=== PATIENT | female | born 1955 | race African-American/Black ===

== ENCOUNTER 2018-11-25 18:00 | Inpatient (IN) ==
[2018-11-25 19:08] LABS: Basophils % 0.2 % (0.0-0.8); Eosinophils # 0.3 10*3/uL (0.0-0.87); Eosinophils % 1.9 % (0.00-10.9); Hematocrit 44.7 VOL% (35.7-47.0); Hemoglobin 13.6 GM/DL (12.0-16.0); Immature Granulocytes % 2.2 %; Immature Granulocytes Absolute 0.35 #; Lymphocytes # 0.9 10*3/uL (1.4-4.0); Lymphocytes % 5.4 % (21.3-54.2); Mean Corpuscular HGB Conc 30.4 GM/DL (32-36); Mean Corpuscular Hemoglobin 28 PG (27-34); Mean Corpuscular Volume 91.4 FL (87-102); Mean Platelet Volume 10.2 FL (9.6-12.0); Monocytes % 5.9 % (1.7-12.7); NRBC # 0.03 10*3/uL; Neutrophils # 13.6 10*3/uL (1.4-7.4); Neutrophils % 84.4 % (38.7-73.9); Platelet Count 317 T/CUMM (130-400); Red Blood Count 4.89 MC/CUMM (3.8-5.5); Red Cell Distribution Width 14.5 % (9.3-17.3); White Blood Count 16.1 T/CUMM (4-12)
[2018-11-25 19:11] LABS: VBG Base Excess 10.8 MEQ/L (0-4); VBG HCO3 33.1 MEQ/L (24-28); VBG Oxygen Saturation 43.4 %; VBG PCO2 62.1 MMHG (41-51); VBG PH 7.403; VBG PO2 27.1 MMHG (17-40)
[2018-11-25 19:28] LABS: Albumin 2.7 G/DL (3.4-5.0); Bilirubin,Total 0.6 MG/DL (0.2-1.0); Calcium 8.2 MG/DL (8.5-10.1); Potassium 3.6 MMOL/L (3.5-5.1); Total Protein 6.2 G/DL (6.4-8.3)
[2018-11-25] MEDS ORDERED: FUROSEMIDE 40 MG/4 ML VIAL IV STA (19:41)
[2018-11-25] MEDS ORDERED: DEXTROSE 50% 25 GM/50 ML SYRINGE IV PRN (21:19)
[2018-11-25] MEDS ORDERED: GLUCAGON 1 MG VIAL IM PRN ×2 (21:19)
[2018-11-25] MEDS ORDERED: ACETAMINOPHEN 325 MG TABLET PO PRN (21:19)
[2018-11-25] MEDS ORDERED: DEXTROSE 50% 25 GM/50 ML VIAL IV PRN (21:19)
[2018-11-25] MEDS ORDERED: MAGNESIUM SULF RIDER 4 GM in PREMIX 1 EACH IV PRN (21:19)
[2018-11-25] MEDS ORDERED: ONDANSETRON 4 MG/2 ML VIAL IV PRN (21:19)
[2018-11-25] MEDS ORDERED: MAGNESIUM SULF RIDER 2 GM in PREMIX 1 EACH IV PRN (21:19)
[2018-11-25] MEDS ORDERED: CETIRIZINE 10 MG TABLET PO PRN (21:27)
[2018-11-26] MEDS: APIXABAN 5 MG TABLET PO SCH ×3 (00:28→21:58)
[2018-11-26] MEDS: INSULIN REGULAR 100 UNIT/ML SUBCUT SCH ×5 (00:37→21:58)
[2018-11-26 05:59] LABS: Basophils # 0.1 10*3/uL (0.0-0.2); Basophils % 0.3 % (0.0-0.8); Eosinophils # 0.4 10*3/uL (0.0-0.87); Eosinophils % 2.5 % (0.00-10.9); Hematocrit 47.3 VOL% (35.7-47.0); Hemoglobin 14.2 GM/DL (12.0-16.0); Immature Granulocytes % 2.7 %; Immature Granulocytes Absolute 0.42 #; Lymphocytes % 6.5 % (21.3-54.2); Mean Corpuscular Hemoglobin 28 PG (27-34); Mean Corpuscular Volume 91.8 FL (87-102); Mean Platelet Volume 10.9 FL (9.6-12.0); Monocytes # 1.1 10*3/uL (0.11-0.8); Monocytes % 6.9 % (1.7-12.7); NRBC # 0.02 10*3/uL; Neutrophils # 12.5 10*3/uL (1.4-7.4); Neutrophils % 81.1 % (38.7-73.9); Platelet Count 312 T/CUMM (130-400); Red Blood Count 5.15 MC/CUMM (3.8-5.5); Red Cell Distribution Width 14.6 % (9.3-17.3); White Blood Count 15.4 T/CUMM (4-12)
[2018-11-26 06:34] LABS: Albumin 2.1 G/DL (3.4-5.0); Bilirubin,Total 0.6 MG/DL (0.2-1.0); Calcium 7.9 MG/DL (8.5-10.1); Osmolality,Calculated 282.5 MOS/KG (273-304); Potassium 3.4 MMOL/L (3.5-5.1)
[2018-11-26] MEDS: LEVOTHYROXINE 50 MCG TABLET PO SCH (06:38)
[2018-11-26] MEDS ORDERED: Fluticasone/Vilanterol [Breo Ellipta 100-25 Mcg Inh] INH SCH (09:00)
[2018-11-26] MEDS ORDERED: NON-FORMULARY MEDICATION (Fexofenadine/Pseudoeph 60-120 1 TABLET) PO SCH (09:00)
[2018-11-26] MEDS: METOPROLOL TARTRATE 25 MG TABLET PO SCH (09:02)
[2018-11-26] MEDS: FUROSEMIDE 40 MG/4 ML VIAL IV SCH ×2 (09:02→17:14)
[2018-11-26] MEDS: PANTOPRAZOLE 40 MG TABLET PO SCH (09:03)
[2018-11-26] MEDS: FERROUS SULFATE 325 MG TABLET PO SCH ×2 (09:03→21:58)
[2018-11-26] MEDS: ASPIRIN CHEW 81 MG TABLET PO SCH (09:03)
[2018-11-26] MEDS: DILTIAZEM CD 120 MG CAPSULE PO SCH ×2 (09:03→21:58)
[2018-11-26] MEDS: POLYMYXIN/TRIMETHOPRIM OPH SOL 10 ML BOTTLE BOTH EYES SCH ×4 (09:03→22:00)
[2018-11-26] MEDS: ISOSORBIDE MONONITRATE 60 MG TABLET PO SCH (09:03)
[2018-11-26] MEDS: FLUTICASONE 50 MCG NASAL SPRAY 16 GM BOTTLE BOTH NARES SCH (09:03)
[2018-11-26] MEDS: DRONEDARONE 400 MG TABLET PO SCH ×2 (09:03→17:14)
[2018-11-26 13:25] LABS: Apearance,Urine CLOUDY (Clear); Bilirubin,Urine Negative (Negative); Blood, Urine Large mg/dL (Negative); Glucose,Urine (UA) Negative (Negative); Hyaline Casts,Urine 11 /LPF (0-3); Ketones,Urine Negative (Negative); Mucus,Urine Few /LPF (Occasional); Nitrite,Urine Negative (Negative); Protein,Urine Negative; RBC,Urine 249 /HPF (0-4); Urine Color Dark yellow (Yellow); Urine Specific Gravity 1.015 (1.001-1.035); WBC,Urine 361 /HPF (0-6)
[2018-11-26] MEDS: cefTRIAXone 1,000 MG in SYRINGE 1 EACH IV SCH (16:50)
[2018-11-26] MEDS: ROSUVASTATIN 20 MG TABLET PO SCH (21:58)
[2018-11-27] MEDS: LEVOTHYROXINE 50 MCG TABLET PO SCH (06:01)
[2018-11-27] MEDS: INSULIN REGULAR 100 UNIT/ML SUBCUT SCH ×4 (08:32→21:13)
[2018-11-27] MEDS: DRONEDARONE 400 MG TABLET PO SCH (08:33)
[2018-11-27] MEDS: FUROSEMIDE 40 MG/4 ML VIAL IV SCH ×2 (08:33→17:01)
[2018-11-27] MEDS: DILTIAZEM CD 120 MG CAPSULE PO SCH ×2 (08:33→20:32)
[2018-11-27] MEDS: ISOSORBIDE MONONITRATE 60 MG TABLET PO SCH (08:33)
[2018-11-27] MEDS: FERROUS SULFATE 325 MG TABLET PO SCH ×2 (08:33→20:32)
[2018-11-27] MEDS: ASPIRIN CHEW 81 MG TABLET PO SCH (08:33)
[2018-11-27] MEDS: APIXABAN 5 MG TABLET PO SCH ×2 (08:34→20:32)
[2018-11-27] MEDS: METOPROLOL TARTRATE 25 MG TABLET PO SCH (08:34)
[2018-11-27] MEDS: PANTOPRAZOLE 40 MG TABLET PO SCH (08:34)
[2018-11-27] MEDS: POLYMYXIN/TRIMETHOPRIM OPH SOL 10 ML BOTTLE BOTH EYES SCH ×4 (08:34→20:33)
[2018-11-27] MEDS: FLUTICASONE 50 MCG NASAL SPRAY 16 GM BOTTLE BOTH NARES SCH (08:35)
[2018-11-27 09:02] LABS: Basophils % 0.2 % (0.0-0.8); Eosinophils # 0.4 10*3/uL (0.0-0.87); Eosinophils % 2.9 % (0.00-10.9); Hematocrit 39.9 VOL% (35.7-47.0); Hemoglobin 12.1 GM/DL (12.0-16.0); Immature Granulocytes % 2.9 %; Immature Granulocytes Absolute 0.37 #; Lymphocytes % 7.7 % (21.3-54.2); Mean Corpuscular HGB Conc 30.3 GM/DL (32-36); Mean Corpuscular Hemoglobin 28 PG (27-34); Mean Corpuscular Volume 92.1 FL (87-102); Mean Platelet Volume 10.2 FL (9.6-12.0); Monocytes % 7.5 % (1.7-12.7); NRBC # 0.02 10*3/uL; Neutrophils # 10.2 10*3/uL (1.4-7.4); Neutrophils % 78.8 % (38.7-73.9); Platelet Count 283 T/CUMM (130-400); Red Blood Count 4.33 MC/CUMM (3.8-5.5); Red Cell Distribution Width 14.8 % (9.3-17.3); White Blood Count 12.9 T/CUMM (4-12)
[2018-11-27 09:16] LABS: Calcium 7.9 MG/DL (8.5-10.1); Potassium 3.2 MMOL/L (3.5-5.1)
[2018-11-27] MEDS ORDERED: SKIN HEALING OINT (AQUAPHOR) 50 GM TUBE TOP PRN (11:00)
[2018-11-27] MEDS: POTASSIUM CHLORIDE 20 MEQ TABLET PO SCH ×2 (11:31→15:08)
[2018-11-27 12:15] LABS: Free T4 (Free Thyroxine) 1.48 NG/DL (0.76-1.46); Thyroid Stimulating Hormone 5.76 uIU/ml (0.358-3.74)
[2018-11-27] MEDS: cefTRIAXone 1,000 MG in SYRINGE 1 EACH IV SCH (15:08)
[2018-11-27] MEDS: METOPROLOL TARTRATE 100 MG TABLET PO SCH (20:32)
[2018-11-27] MEDS: ROSUVASTATIN 20 MG TABLET PO SCH (20:32)
[2018-11-27] MEDS ORDERED: METOPROLOL TARTRATE 25 MG TABLET PO SCH (21:00)
[2018-11-28] MEDS: LEVOTHYROXINE 50 MCG TABLET PO SCH (05:58)
[2018-11-28 06:12] LABS: Basophils % 0.4 % (0.0-0.8); Eosinophils # 0.3 10*3/uL (0.0-0.87); Eosinophils % 3.2 % (0.00-10.9); Hematocrit 39.9 VOL% (35.7-47.0); Immature Granulocytes % 2.3 %; Immature Granulocytes Absolute 0.23 #; Lymphocytes # 0.6 10*3/uL (1.4-4.0); Lymphocytes % 5.9 % (21.3-54.2); Mean Corpuscular HGB Conc 30.1 GM/DL (32-36); Mean Corpuscular Hemoglobin 28 PG (27-34); Mean Corpuscular Volume 92.1 FL (87-102); Mean Platelet Volume 10.7 FL (9.6-12.0); Neutrophils # 7.9 10*3/uL (1.4-7.4); Neutrophils % 78.2 % (38.7-73.9); Platelet Count 305 T/CUMM (130-400); Red Blood Count 4.33 MC/CUMM (3.8-5.5); Red Cell Distribution Width 14.7 % (9.3-17.3); White Blood Count 10.1 T/CUMM (4-12)
[2018-11-28 06:32] LABS: Calcium 8.3 MG/DL (8.5-10.1); Osmolality,Calculated 284.5 MOS/KG (273-304); Potassium 3.7 MMOL/L (3.5-5.1)
[2018-11-28] MEDS: FUROSEMIDE 40 MG/4 ML VIAL IV SCH ×2 (09:04→15:09)
[2018-11-28] MEDS: FLUTICASONE 50 MCG NASAL SPRAY 16 GM BOTTLE BOTH NARES SCH (09:04)
[2018-11-28] MEDS: INSULIN REGULAR 100 UNIT/ML SUBCUT SCH ×4 (09:04→20:41)
[2018-11-28] MEDS: ASPIRIN CHEW 81 MG TABLET PO SCH (09:05)
[2018-11-28] MEDS: APIXABAN 5 MG TABLET PO SCH ×2 (09:05→20:35)
[2018-11-28] MEDS: DILTIAZEM CD 120 MG CAPSULE PO SCH ×2 (09:05→20:35)
[2018-11-28] MEDS: METOPROLOL TARTRATE 100 MG TABLET PO SCH ×2 (09:05→20:35)
[2018-11-28] MEDS: PANTOPRAZOLE 40 MG TABLET PO SCH (09:05)
[2018-11-28] MEDS: ISOSORBIDE MONONITRATE 60 MG TABLET PO SCH (09:05)
[2018-11-28] MEDS: FERROUS SULFATE 325 MG TABLET PO SCH ×2 (09:06→20:35)
[2018-11-28] MEDS: POLYMYXIN/TRIMETHOPRIM OPH SOL 10 ML BOTTLE BOTH EYES SCH ×3 (09:06→16:30)
[2018-11-28] MEDS: metFORMIN 500 MG TABLET PO SCH ×2 (09:13→16:28)
[2018-11-28] MEDS: INSULIN GLARGINE 100 UNIT/ML SUBCUT SCH (09:13)
[2018-11-28] MEDS: CLOBETASOL 0.05% CREAM 15 GM TUBE TOP SCH (09:54)
[2018-11-28] MEDS: cefTRIAXone 1,000 MG in SYRINGE 1 EACH IV SCH (15:09)
[2018-11-28] MEDS: ROSUVASTATIN 20 MG TABLET PO SCH (20:35)
[2018-11-29] MEDS: POLYMYXIN/TRIMETHOPRIM OPH SOL 10 ML BOTTLE BOTH EYES SCH ×5 (01:17→20:44)
[2018-11-29] MEDS: CLOBETASOL 0.05% CREAM 15 GM TUBE TOP SCH ×3 (01:17→20:45)
[2018-11-29 05:42] LABS: Basophils % 0.2 % (0.0-0.8); Eosinophils % 0.1 % (0.00-10.9); Hematocrit 34.5 VOL% (35.7-47.0); Hemoglobin 10.5 GM/DL (12.0-16.0); Immature Granulocytes % 1.1 %; Lymphocytes # 0.6 10*3/uL (1.4-4.0); Mean Corpuscular HGB Conc 30.4 GM/DL (32-36); Mean Corpuscular Hemoglobin 28 PG (27-34); Monocytes # 0.4 10*3/uL (0.11-0.8); Monocytes % 3.8 % (1.7-12.7); Neutrophils # 8.2 10*3/uL (1.4-7.4); Neutrophils % 88.8 % (38.7-73.9); Platelet Count 263 T/CUMM (130-400); Red Blood Count 3.79 MC/CUMM (3.8-5.5); Red Cell Distribution Width 14.5 % (9.3-17.3); White Blood Count 9.2 T/CUMM (4-12)
[2018-11-29 06:03] LABS: Calcium 8.1 MG/DL (8.5-10.1); Osmolality,Calculated 284.7 MOS/KG (273-304); Potassium 3.8 MMOL/L (3.5-5.1)
[2018-11-29] MEDS: LEVOTHYROXINE 50 MCG TABLET PO SCH (06:07)
[2018-11-29] MEDS: INSULIN REGULAR 100 UNIT/ML SUBCUT SCH ×4 (09:35→20:45)
[2018-11-29] MEDS: INSULIN GLARGINE 100 UNIT/ML SUBCUT SCH (09:36)
[2018-11-29] MEDS: metFORMIN 500 MG TABLET PO SCH ×2 (09:36→16:48)
[2018-11-29] MEDS: FERROUS SULFATE 325 MG TABLET PO SCH ×2 (09:36→20:43)
[2018-11-29] MEDS: ISOSORBIDE MONONITRATE 60 MG TABLET PO SCH (09:36)
[2018-11-29] MEDS: FUROSEMIDE 40 MG/4 ML VIAL IV SCH ×2 (09:36→16:46)
[2018-11-29] MEDS: METOPROLOL TARTRATE 100 MG TABLET PO SCH ×2 (09:37→20:43)
[2018-11-29] MEDS: DILTIAZEM CD 120 MG CAPSULE PO SCH ×2 (09:37→20:44)
[2018-11-29] MEDS: PANTOPRAZOLE 40 MG TABLET PO SCH (09:37)
[2018-11-29] MEDS: ASPIRIN CHEW 81 MG TABLET PO SCH (09:37)
[2018-11-29] MEDS: APIXABAN 5 MG TABLET PO SCH ×2 (09:37→20:43)
[2018-11-29] MEDS: FLUTICASONE 50 MCG NASAL SPRAY 16 GM BOTTLE BOTH NARES SCH (14:10)
[2018-11-29] MEDS: cefTRIAXone 1,000 MG in SYRINGE 1 EACH IV SCH (16:47)
[2018-11-29] MEDS: ROSUVASTATIN 20 MG TABLET PO SCH (20:43)
[2018-11-30 06:45] LABS: Basophils % 0.2 % (0.0-0.8); Eosinophils % 0.1 % (0.00-10.9); Hematocrit 32.9 VOL% (35.7-47.0); Hemoglobin 10.1 GM/DL (12.0-16.0); Immature Granulocytes Absolute 0.11 #; Lymphocytes # 0.6 10*3/uL (1.4-4.0); Lymphocytes % 5.4 % (21.3-54.2); Mean Corpuscular HGB Conc 30.7 GM/DL (32-36); Mean Corpuscular Hemoglobin 28 PG (27-34); Mean Corpuscular Volume 91.6 FL (87-102); Mean Platelet Volume 10.5 FL (9.6-12.0); Monocytes # 0.5 10*3/uL (0.11-0.8); Monocytes % 4.7 % (1.7-12.7); Neutrophils # 10.1 10*3/uL (1.4-7.4); Neutrophils % 88.6 % (38.7-73.9); Platelet Count 260 T/CUMM (130-400); Red Blood Count 3.59 MC/CUMM (3.8-5.5); Red Cell Distribution Width 14.2 % (9.3-17.3); White Blood Count 11.3 T/CUMM (4-12)
[2018-11-30 06:55] LABS: Calcium 8.4 MG/DL (8.5-10.1); Osmolality,Calculated 291.7 MOS/KG (273-304); Potassium 3.9 MMOL/L (3.5-5.1)
[2018-11-30] MEDS: LEVOTHYROXINE 50 MCG TABLET PO SCH (07:05)
[2018-11-30] MEDS: INSULIN REGULAR 100 UNIT/ML SUBCUT SCH ×4 (08:57→21:11)
[2018-11-30] MEDS: ASPIRIN CHEW 81 MG TABLET PO SCH (08:58)
[2018-11-30] MEDS: metFORMIN 500 MG TABLET PO SCH ×2 (08:58→18:22)
[2018-11-30] MEDS: PANTOPRAZOLE 40 MG TABLET PO SCH (08:58)
[2018-11-30] MEDS: APIXABAN 5 MG TABLET PO SCH ×2 (08:58→21:11)
[2018-11-30] MEDS: DILTIAZEM CD 120 MG CAPSULE PO SCH ×2 (08:58→21:09)
[2018-11-30] MEDS: INSULIN GLARGINE 100 UNIT/ML SUBCUT SCH (08:58)
[2018-11-30] MEDS: ISOSORBIDE MONONITRATE 60 MG TABLET PO SCH (08:59)
[2018-11-30] MEDS: POLYMYXIN/TRIMETHOPRIM OPH SOL 10 ML BOTTLE BOTH EYES SCH ×4 (08:59→21:11)
[2018-11-30] MEDS: METOPROLOL TARTRATE 100 MG TABLET PO SCH ×2 (08:59→21:10)
[2018-11-30] MEDS: FERROUS SULFATE 325 MG TABLET PO SCH ×2 (08:59→21:11)
[2018-11-30] MEDS: FUROSEMIDE 40 MG/4 ML VIAL IV SCH (10:16)
[2018-11-30] MEDS: CLOBETASOL 0.05% CREAM 15 GM TUBE TOP SCH ×2 (10:17→21:15)
[2018-11-30] MEDS: FLUTICASONE 50 MCG NASAL SPRAY 16 GM BOTTLE BOTH NARES SCH (10:17)
[2018-11-30] MEDS ORDERED: FUROSEMIDE 40 MG TABLET PO PRN (11:47)
[2018-11-30] MEDS: cefTRIAXone 1,000 MG in SYRINGE 1 EACH IV SCH (15:18)
[2018-11-30] MEDS: ROSUVASTATIN 20 MG TABLET PO SCH (21:10)
[2018-12-01 06:39] LABS: Calcium 8.6 MG/DL (8.5-10.1); Osmolality,Calculated 293.4 MOS/KG (273-304); Potassium 4.2 MMOL/L (3.5-5.1)
[2018-12-01] MEDS: LEVOTHYROXINE 50 MCG TABLET PO SCH (07:30)
[2018-12-01] MEDS: FERROUS SULFATE 325 MG TABLET PO SCH ×2 (08:48→21:45)
[2018-12-01] MEDS: ASPIRIN CHEW 81 MG TABLET PO SCH (08:48)
[2018-12-01] MEDS: APIXABAN 5 MG TABLET PO SCH ×2 (08:48→21:46)
[2018-12-01] MEDS: ISOSORBIDE MONONITRATE 60 MG TABLET PO SCH (08:48)
[2018-12-01] MEDS: DILTIAZEM CD 120 MG CAPSULE PO SCH ×2 (08:48→21:46)
[2018-12-01] MEDS: PANTOPRAZOLE 40 MG TABLET PO SCH (08:48)
[2018-12-01] MEDS: METOPROLOL TARTRATE 100 MG TABLET PO SCH ×2 (08:48→21:46)
[2018-12-01] MEDS: metFORMIN 500 MG TABLET PO SCH (08:48)
[2018-12-01] MEDS: FLUTICASONE 50 MCG NASAL SPRAY 16 GM BOTTLE BOTH NARES SCH (08:49)
[2018-12-01] MEDS: INSULIN GLARGINE 100 UNIT/ML SUBCUT SCH (08:50)
[2018-12-01] MEDS: CLOBETASOL 0.05% CREAM 15 GM TUBE TOP SCH ×2 (08:50→21:46)
[2018-12-01] MEDS: POLYMYXIN/TRIMETHOPRIM OPH SOL 10 ML BOTTLE BOTH EYES SCH ×4 (08:50→21:47)
[2018-12-01] MEDS: INSULIN REGULAR 100 UNIT/ML SUBCUT SCH ×4 (08:50→21:46)
[2018-12-01] MEDS: glyBURIDE 2.5 MG TABLET PO SCH (12:52)
[2018-12-01] MEDS: FUROSEMIDE 40 MG TABLET PO SCH (16:53)
[2018-12-01] MEDS: ROSUVASTATIN 20 MG TABLET PO SCH (21:45)
[2018-12-02] MEDS: LEVOTHYROXINE 50 MCG TABLET PO SCH (06:05)
[2018-12-02] MEDS: CLOBETASOL 0.05% CREAM 15 GM TUBE TOP SCH (08:30)
[2018-12-02] MEDS: INSULIN GLARGINE 100 UNIT/ML SUBCUT SCH (08:30)
[2018-12-02] MEDS: INSULIN REGULAR 100 UNIT/ML SUBCUT SCH ×3 (08:30→16:20)
[2018-12-02] MEDS: FLUTICASONE 50 MCG NASAL SPRAY 16 GM BOTTLE BOTH NARES SCH (08:30)
[2018-12-02] MEDS: glyBURIDE 2.5 MG TABLET PO SCH (08:31)
[2018-12-02] MEDS: APIXABAN 5 MG TABLET PO SCH (08:31)
[2018-12-02] MEDS: ISOSORBIDE MONONITRATE 60 MG TABLET PO SCH (08:31)
[2018-12-02] MEDS: POLYMYXIN/TRIMETHOPRIM OPH SOL 10 ML BOTTLE BOTH EYES SCH ×3 (08:31→16:56)
[2018-12-02] MEDS: PANTOPRAZOLE 40 MG TABLET PO SCH (08:31)
[2018-12-02] MEDS: ASPIRIN CHEW 81 MG TABLET PO SCH (08:31)
[2018-12-02] MEDS: METOPROLOL TARTRATE 100 MG TABLET PO SCH (08:31)
[2018-12-02] MEDS: FERROUS SULFATE 325 MG TABLET PO SCH (08:31)
[2018-12-02] MEDS: FUROSEMIDE 40 MG TABLET PO SCH ×2 (08:31→16:20)
[2018-12-02] MEDS: DILTIAZEM CD 120 MG CAPSULE PO SCH (08:31)
[2018-12-02 14:47] LABS: Calcium 8.4 MG/DL (8.5-10.1); Osmolality,Calculated 290.5 MOS/KG (273-304); Potassium 3.8 MMOL/L (3.5-5.1)
[2018-12-02 16:55] VITALS: BP 163/92
== END 2018-12-02 16:58 | DRG 292 ==
LOC: N.ED 18:00 → SUATTDRO 21:19 → N.EDINP 21:19 → N.2E 21:58
PROVIDERS: ADMIT Internal Medicine; ATTEND Internal Medicine

== ENCOUNTER 2019-04-22 10:28 | Observation (INO) ==
[2019-04-22] MEDS ORDERED: ALBUTEROL 2.5 MG/3 ML NEB RESP TX SCH (11:00)
[2019-04-22 11:35] LABS: Basophils % 0.3 % (0.0-0.8); Eosinophils # 0.2 10*3/uL (0.0-0.87); Eosinophils % 1.3 % (0.00-10.9); Hematocrit 35.2 VOL% (35.7-47.0); Hemoglobin 10.5 GM/DL (12.0-16.0); Immature Granulocytes % 0.5 %; Immature Granulocytes Absolute 0.06 #; Lymphocytes # 0.8 10*3/uL (1.4-4.0); Lymphocytes % 7.2 % (21.3-54.2); Mean Corpuscular HGB Conc 29.8 GM/DL (32-36); Mean Corpuscular Volume 96.7 FL (87-102); Mean Platelet Volume 9.8 FL (9.6-12.0); Monocytes % 9.7 % (1.7-12.7); Platelet Count 269 T/CUMM (130-400); Red Blood Count 3.64 MC/CUMM (3.8-5.5); Red Cell Distribution Width 14.3 % (9.3-17.3); White Blood Count 11.3 T/CUMM (4-12)
[2019-04-22 11:44] LABS: INR 1.1; PT Patient Result 11.6 SECS; Partial Thromboplastin Time 24.6 SECS (0-40)
[2019-04-22 11:58] LABS: Albumin 3.2 G/DL (3.4-5.0); Bilirubin,Total 0.6 MG/DL (0.2-1.0); Calcium 8.9 MG/DL (8.5-10.1); Osmolality,Calculated 289.6 MOS/KG (273-304); Total Protein 6.1 G/DL (6.4-8.3)
[2019-04-22] MEDS ORDERED: DILTIAZEM 50 MG/10 ML VIAL IV STA (13:25)
[2019-04-22] MEDS ORDERED: DILTIAZEM INJ 100 MG in SODIUM CHLORIDE 0.9% 100 ML IV SCH (13:30)
[2019-04-22] MEDS ORDERED: MORPHINE 4 MG/1 ML VIAL IV PRN (13:31)
[2019-04-22] MEDS ORDERED: PROMETHAZINE 25 MG/1 ML VIAL IM PRN (13:31)
[2019-04-22] MEDS ORDERED: ACETAMINOPHEN 325 MG TABLET PO PRN (13:31)
[2019-04-22] MEDS ORDERED: ONDANSETRON 4 MG/2 ML VIAL IV PRN (13:31)
[2019-04-22] MEDS ORDERED: ALBUTEROL/IPRATROPIUM 3 ML NEB RESP TX PRN (13:33)
[2019-04-22] MEDS ORDERED: FUROSEMIDE 40 MG TABLET PO PRN (13:33)
[2019-04-22] MEDS ORDERED: POTASSIUM CHLORIDE 20 MEQ TABLET PO ONE (14:16)
[2019-04-22] MEDS ORDERED: METOPROLOL TARTRATE 50 MG TABLET PO STA (14:17)
[2019-04-22] MEDS ORDERED: GLUCAGON 1 MG VIAL IM PRN (14:18)
[2019-04-22] MEDS ORDERED: DEXTROSE 50% 25 GM/50 ML VIAL IV PRN (14:18)
[2019-04-22] MEDS ORDERED: DILTIAZEM CD 120 MG CAPSULE PO STA (14:18)
[2019-04-22] MEDS: FUROSEMIDE 40 MG/4 ML VIAL IV SCH (15:34)
[2019-04-22] MEDS: INSULIN REGULAR 100 UNIT/ML SUBCUT SCH ×2 (18:09→21:20)
[2019-04-22] MEDS: INSULIN LISPRO 100 UNIT/ML SUBCUT SCH (18:09)
[2019-04-22] MEDS ORDERED: ROSUVASTATIN 20 MG TABLET PO SCH (21:00)
[2019-04-22] MEDS ORDERED: CETIRIZINE 10 MG TABLET PO SCH (21:00)
[2019-04-22] MEDS: METOPROLOL TARTRATE 100 MG TABLET PO SCH (21:17)
[2019-04-22] MEDS: APIXABAN 5 MG TABLET PO SCH (21:17)
[2019-04-22] MEDS: POTASSIUM CHLORIDE 20 MEQ TABLET PO SCH (21:18)
[2019-04-22] MEDS: FERROUS SULFATE 325 MG TABLET PO SCH (21:18)
[2019-04-22] MEDS: DILTIAZEM CD 120 MG CAPSULE PO SCH (21:19)
[2019-04-23 06:27] LABS: Basophils % 0.2 % (0.0-0.8); Eosinophils # 0.2 10*3/uL (0.0-0.87); Eosinophils % 2.6 % (0.00-10.9); Hematocrit 35.3 VOL% (35.7-47.0); Hemoglobin 10.5 GM/DL (12.0-16.0); Immature Granulocytes % 0.3 %; Immature Granulocytes Absolute 0.03 #; Lymphocytes # 0.6 10*3/uL (1.4-4.0); Lymphocytes % 6.7 % (21.3-54.2); Mean Corpuscular HGB Conc 29.7 GM/DL (32-36); Monocytes % 10.4 % (1.7-12.7); Neutrophils % 79.8 % (38.7-73.9); Platelet Count 266 T/CUMM (130-400); Red Blood Count 3.64 MC/CUMM (3.8-5.5); Red Cell Distribution Width 14.5 % (9.3-17.3); White Blood Count 9.2 T/CUMM (4-12)
[2019-04-23 06:55] LABS: Albumin 2.9 G/DL (3.4-5.0); Calcium 8.8 MG/DL (8.5-10.1); Osmolality,Calculated 289.6 MOS/KG (273-304); Risk Ratio 2.15; VLDL CHOLESTEROL 14.2 MG/DL
[2019-04-23] MEDS ORDERED: ISOSORBIDE MONONITRATE 60 MG TABLET PO SCH (09:00)
[2019-04-23] MEDS ORDERED: LEVOTHYROXINE 50 MCG TABLET PO SCH (09:00)
[2019-04-23] MEDS ORDERED: INSULIN GLARGINE 100 UNIT/ML SUBCUT SCH (09:00)
[2019-04-23] MEDS ORDERED: NF- (Fluticasone Furoate-Vilanterol [Breo Ellipta] 1 PUFF) INH SCH (09:00)
[2019-04-23] MEDS ORDERED: FLUTICASONE 50 MCG NASAL SPRAY 16 GM BOTTLE BOTH NARES SCH (09:00)
[2019-04-23] MEDS: DILTIAZEM CD 120 MG CAPSULE PO SCH (09:04)
[2019-04-23] MEDS: POTASSIUM CHLORIDE 20 MEQ TABLET PO SCH (09:04)
[2019-04-23] MEDS: APIXABAN 5 MG TABLET PO SCH (09:04)
[2019-04-23] MEDS: METOPROLOL TARTRATE 100 MG TABLET PO SCH (09:04)
[2019-04-23] MEDS: FERROUS SULFATE 325 MG TABLET PO SCH (09:04)
[2019-04-23] MEDS: INSULIN LISPRO 100 UNIT/ML SUBCUT SCH (09:05)
[2019-04-23] MEDS: FUROSEMIDE 40 MG/4 ML VIAL IV SCH (09:05)
[2019-04-23] MEDS: INSULIN REGULAR 100 UNIT/ML SUBCUT SCH (09:05)
[2019-04-23 12:05] VITALS: BP 140/57
== END 2019-04-23 12:44 | disposition home or self-care (01) ==
LOC: N.ED 10:28 → N.EDINP 10:28 → N.TELEN 14:25
PROVIDERS: ADMIT Internal Medicine; ATTEND Internal Medicine

== ENCOUNTER 2019-05-14 08:20 | Inpatient (IN) ==
[2019-05-14] MEDS ORDERED: SODIUM CHLORIDE 0.9% 1,000 ML IV STA ×3 (08:30→09:13)
[2019-05-14] MEDS ORDERED: DILTIAZEM 50 MG/10 ML VIAL IV STA (08:44)
[2019-05-14 08:45] LABS: Basophils % 0.3 % (0.0-0.8); Eosinophils # 0.2 10*3/uL (0.0-0.87); Eosinophils % 2.6 % (0.00-10.9); Hematocrit 38.8 VOL% (35.7-47.0); Immature Granulocytes % 0.7 %; Immature Granulocytes Absolute 0.06 #; Lymphocytes # 1.5 10*3/uL (1.4-4.0); Lymphocytes % 17.1 % (21.3-54.2); Mean Corpuscular HGB Conc 30.9 GM/DL (32-36); Mean Corpuscular Volume 93.3 FL (87-102); Mean Platelet Volume 10.2 FL (9.6-12.0); Monocytes % 7.8 % (1.7-12.7); Neutrophils % 71.5 % (38.7-73.9); Platelet Count 329 T/CUMM (130-400); Red Blood Count 4.16 MC/CUMM (3.8-5.5); Red Cell Distribution Width 14.6 % (9.3-17.3); White Blood Count 8.6 T/CUMM (4-12)
[2019-05-14 08:50] LABS: INR 1.3; PT Patient Result 14.2 SECS
[2019-05-14 08:56] LABS: Bilirubin,Total 1.1 MG/DL (0.2-1.0); Calcium 7.8 MG/DL (8.5-10.1); Osmolality,Calculated 287.3 MOS/KG (273-304); Total Protein 4.9 G/DL (6.4-8.3)
[2019-05-14 09:00] LABS: ABG Base Excess 0.6 MMOL/L (-2.5-2.5); ABG PCO2 36.8 MM HG (35-48); ABG PH 7.432 (7.35-7.45); ABG TCO2 21.7 MMOL/L (23-27)
[2019-05-14] MEDS: dilTIAZem Drip 125 MG/125 ML PREMIX IV SCH ×2 (09:06→21:00)
[2019-05-14 09:12] LABS: Apearance,Urine Slightly Hazy (Clear); Blood, Urine Negative (Negative); Glucose,Urine (UA) Negative (Negative); Ketones,Urine 5 mg/dL (Negative); Nitrite,Urine Negative (Negative); Protein,Urine 100 MG/DL; RBC,Urine 1 /HPF (0-4); Squamous Epithelial Cell,Urine Occasional /HPF (0-10); Urine Color Amber (Yellow); Urine Specific Gravity 1.025 (1.001-1.035); WBC,Urine 1 /HPF (0-6)
[2019-05-14] MEDS ORDERED: CEFTAROLINE 600 MG in SODIUM CHLORIDE 0.9% 100 ML IV STA (09:13)
[2019-05-14 09:16] LABS: Bilirubin,Urine Small mg/dL (Negative)
[2019-05-14] MEDS ORDERED: FLUTICASONE 50 MCG NASAL SPRAY 16 GM BOTTLE BOTH NARES PRN (11:52)
[2019-05-14] MEDS: SODIUM CHLORIDE 0.9% 1,000 ML IV SCH ×3 (12:34→21:10)
[2019-05-14 13:39] LABS: Hematocrit 37.4 VOL% (35.7-47.0); Hemoglobin 11.3 GM/DL (12.0-16.0)
[2019-05-14] MEDS: PANTOPRAZOLE 40 MG TABLET PO SCH (14:13)
[2019-05-14] MEDS: NOREPINEPHRINE 8 MG in SODIUM CHLORIDE 0.9% 242 ML IV PRN (14:13)
[2019-05-14] MEDS ORDERED: GLUCAGON 1 MG VIAL IM PRN (18:09)
[2019-05-14 18:18] LABS: Hematocrit 36.8 VOL% (35.7-47.0); Hemoglobin 11.1 GM/DL (12.0-16.0)
[2019-05-14] MEDS: INSULIN REGULAR 100 UNIT/ML SUBCUT SCH (20:59)
[2019-05-14] MEDS ORDERED: PIMECROLIMUS 1% CREAM 30 GM TUBE TOP SCH (21:00)
[2019-05-14] MEDS: CETIRIZINE 10 MG TABLET PO SCH (21:10)
[2019-05-14] MEDS: ROSUVASTATIN 20 MG TABLET PO SCH (21:10)
[2019-05-15 00:38] LABS: Hematocrit 34.8 VOL% (35.7-47.0); Hemoglobin 10.7 GM/DL (12.0-16.0)
[2019-05-15] MEDS ORDERED: LORazepam 0.5 MG TABLET PO ONE (00:57)
[2019-05-15] MEDS ORDERED: AMIODARONE INJ 150 MG in DEXTROSE 5% 100 ML IV ONE (03:12)
[2019-05-15] MEDS ORDERED: AMIODARONE INJ 450 MG in DEXTROSE 5% 241 ML IV SCH (03:30)
[2019-05-15 05:48] LABS: Basophils % 0.2 % (0.0-0.8); Eosinophils # 0.2 10*3/uL (0.0-0.87); Eosinophils % 1.6 % (0.00-10.9); Hematocrit 34.5 VOL% (35.7-47.0); Hemoglobin 10.6 GM/DL (12.0-16.0); Immature Granulocytes % 0.8 %; Immature Granulocytes Absolute 0.09 #; Lymphocytes # 1.2 10*3/uL (1.4-4.0); Lymphocytes % 11.3 % (21.3-54.2); Mean Corpuscular HGB Conc 30.7 GM/DL (32-36); Mean Corpuscular Volume 93.2 FL (87-102); Mean Platelet Volume 9.9 FL (9.6-12.0); Monocytes % 7.6 % (1.7-12.7); Neutrophils % 78.5 % (38.7-73.9); Platelet Count 301 T/CUMM (130-400); Red Cell Distribution Width 14.7 % (9.3-17.3); White Blood Count 10.6 T/CUMM (4-12)
[2019-05-15 06:05] LABS: Calcium 7.3 MG/DL (8.5-10.1); Osmolality,Calculated 290.1 MOS/KG (273-304)
[2019-05-15] MEDS: SODIUM CHLORIDE 0.9% 1,000 ML IV SCH ×3 (06:23→22:30)
[2019-05-15 06:46] LABS: Band Neutrophils 1 % (0-10); Eosinophils 2 % (0-10); Lymphocytes 16 % (20-55); Segmented Neutrophils 77 % (50-85); Total Cells Counted 100
[2019-05-15 06:47] LABS: Anisocytosis Slight
[2019-05-15 06:48] LABS: Burr Cells 2+; Microcytosis 1+
[2019-05-15 06:49] LABS: Ovalocytes Slight; Platelet Estimate Normal
[2019-05-15] MEDS: INSULIN REGULAR 100 UNIT/ML SUBCUT SCH ×4 (07:24→21:52)
[2019-05-15] MEDS: LEVOTHYROXINE 50 MCG TABLET PO SCH (08:11)
[2019-05-15] MEDS: PANTOPRAZOLE 40 MG TABLET PO SCH (08:12)
[2019-05-15] MEDS: FERROUS SULFATE 325 MG TABLET PO SCH (08:12)
[2019-05-15] MEDS: ACETAMINOPHEN 325 MG TABLET PO PRN (08:25)
[2019-05-15] MEDS: NOREPINEPHRINE 8 MG in SODIUM CHLORIDE 0.9% 242 ML IV PRN ×3 (09:25→21:25)
[2019-05-15] MEDS: dilTIAZem Drip 125 MG/125 ML PREMIX IV SCH (10:31)
[2019-05-15] MEDS ORDERED: POTASSIUM CHLORIDE 20 MEQ TABLET PO ONE (10:34)
[2019-05-15 11:06] LABS: Basophils # 0.1 10*3/uL (0.0-0.2); Basophils % 0.5 % (0.0-0.8); Eosinophils # 0.2 10*3/uL (0.0-0.87); Eosinophils % 1.9 % (0.00-10.9); Hematocrit 35.3 VOL% (35.7-47.0); Hemoglobin 10.6 GM/DL (12.0-16.0); Immature Granulocytes % 1.4 %; Immature Granulocytes Absolute 0.13 #; Lymphocytes # 1.2 10*3/uL (1.4-4.0); Lymphocytes % 12.8 % (21.3-54.2); Mean Platelet Volume 9.5 FL (9.6-12.0); Monocytes % 8.4 % (1.7-12.7); Platelet Count 265 T/CUMM (130-400); Red Blood Count 3.64 MC/CUMM (3.8-5.5); Red Cell Distribution Width 14.6 % (9.3-17.3); White Blood Count 9.4 T/CUMM (4-12)
[2019-05-15] MEDS ORDERED: DESITIN 4OZ/NYSTATIN 15 GRAM MIXTURE PASTE TOP SCH (11:30)
[2019-05-15] MEDS: AMIODARONE INJ 450 MG in DEXTROSE 5% 241 ML IV SCH (11:50)
[2019-05-15] MEDS: PIMECROLIMUS 1% CREAM 30 GM TUBE TOP SCH ×2 (12:03→21:55)
[2019-05-15] MEDS: METOPROLOL TARTRATE 50 MG TABLET PO SCH ×2 (13:01→21:51)
[2019-05-15 13:05] LABS: Band Neutrophils 2 % (0-10); Eosinophils 1 % (0-10); Lymphocytes 11 % (20-55); Polychromasia Slight; Segmented Neutrophils 82 % (50-85); Total Cells Counted 100
[2019-05-15 13:06] LABS: Platelet Estimate Normal
[2019-05-15 13:08] LABS: Osmolality,Calculated 290.3 MOS/KG (273-304)
[2019-05-15] MEDS: DESITIN 4OZ/NYSTATIN 15 GRAM MIXTURE PASTE TOP SCH (21:51)
[2019-05-15] MEDS: ROSUVASTATIN 20 MG TABLET PO SCH (21:52)
[2019-05-15] MEDS: CETIRIZINE 10 MG TABLET PO SCH (21:52)
[2019-05-16] MEDS: NOREPINEPHRINE 8 MG in SODIUM CHLORIDE 0.9% 242 ML IV PRN ×4 (02:03→17:24)
[2019-05-16] MEDS: SODIUM CHLORIDE 0.9% 1,000 ML IV SCH ×3 (04:00→17:20)
[2019-05-16] MEDS: AMIODARONE INJ 450 MG in DEXTROSE 5% 241 ML IV SCH ×3 (04:45→21:32)
[2019-05-16] MEDS: INSULIN REGULAR 100 UNIT/ML SUBCUT SCH ×4 (07:57→21:29)
[2019-05-16] MEDS: LEVOTHYROXINE 50 MCG TABLET PO SCH (08:27)
[2019-05-16] MEDS: FERROUS SULFATE 325 MG TABLET PO SCH (08:27)
[2019-05-16] MEDS: PANTOPRAZOLE 40 MG TABLET PO SCH (08:28)
[2019-05-16] MEDS: METOPROLOL TARTRATE 50 MG TABLET PO SCH ×2 (08:28→21:28)
[2019-05-16] MEDS: dilTIAZem Drip 125 MG/125 ML PREMIX IV SCH (09:42)
[2019-05-16] MEDS: PIMECROLIMUS 1% CREAM 30 GM TUBE TOP SCH ×2 (09:42→23:29)
[2019-05-16] MEDS: DESITIN 4OZ/NYSTATIN 15 GRAM MIXTURE PASTE TOP SCH ×2 (09:42→23:28)
[2019-05-16 10:17] LABS: Basophils % 0.4 % (0.0-0.8); Eosinophils # 0.3 10*3/uL (0.0-0.87); Eosinophils % 3.3 % (0.00-10.9); Hematocrit 35.6 VOL% (35.7-47.0); Hemoglobin 10.7 GM/DL (12.0-16.0); Immature Granulocytes % 0.8 %; Immature Granulocytes Absolute 0.06 #; Lymphocytes # 0.9 10*3/uL (1.4-4.0); Lymphocytes % 11.1 % (21.3-54.2); Mean Corpuscular HGB Conc 30.1 GM/DL (32-36); Mean Corpuscular Volume 93.9 FL (87-102); Mean Platelet Volume 9.1 FL (9.6-12.0); Monocytes % 9.6 % (1.7-12.7); Neutrophils % 74.8 % (38.7-73.9); Platelet Count 285 T/CUMM (130-400); Red Blood Count 3.79 MC/CUMM (3.8-5.5); Red Cell Distribution Width 14.7 % (9.3-17.3); White Blood Count 7.8 T/CUMM (4-12)
[2019-05-16 10:38] LABS: Anisocytosis 1+; Band Neutrophils 13 % (0-10); Eosinophils 3 % (0-10); Lymphocytes 8 % (20-55); Platelet Estimate Normal; Poikilocytosis 1+; Polychromasia Slight; Segmented Neutrophils 69 % (50-85); Total Cells Counted 100
[2019-05-16] MEDS: CETIRIZINE 10 MG TABLET PO SCH (21:28)
[2019-05-16] MEDS: ROSUVASTATIN 20 MG TABLET PO SCH (21:28)
[2019-05-16] MEDS: VANCOMYCIN INJ 2,000 MG in SODIUM CHLORIDE 0.9% 500 ML IV SCH (21:29)
[2019-05-16] MEDS: LACTOBACILLUS ACIDOPHILUS/BULGARICUS CHEW TABLET PO SCH (21:38)
[2019-05-17] MEDS: SODIUM CHLORIDE 0.9% 1,000 ML IV SCH ×3 (04:01→14:49)
[2019-05-17] MEDS: NOREPINEPHRINE 8 MG in SODIUM CHLORIDE 0.9% 242 ML IV PRN ×3 (04:03→23:26)
[2019-05-17] MEDS: INSULIN REGULAR 100 UNIT/ML SUBCUT SCH ×4 (08:52→20:44)
[2019-05-17] MEDS: AMIODARONE INJ 450 MG in DEXTROSE 5% 241 ML IV SCH ×2 (08:53→17:11)
[2019-05-17] MEDS: METOPROLOL TARTRATE 50 MG TABLET PO SCH ×2 (09:24→20:45)
[2019-05-17] MEDS: FERROUS SULFATE 325 MG TABLET PO SCH (09:24)
[2019-05-17] MEDS: PANTOPRAZOLE 40 MG TABLET PO SCH (09:24)
[2019-05-17] MEDS: LACTOBACILLUS ACIDOPHILUS/BULGARICUS CHEW TABLET PO SCH ×2 (09:24→20:45)
[2019-05-17 10:17] LABS: Basophils % 0.4 % (0.0-0.8); Eosinophils # 0.3 10*3/uL (0.0-0.87); Eosinophils % 3.3 % (0.00-10.9); Hematocrit 34.1 VOL% (35.7-47.0); Hemoglobin 10.3 GM/DL (12.0-16.0); Immature Granulocytes Absolute 0.08 #; Lymphocytes # 0.8 10*3/uL (1.4-4.0); Lymphocytes % 10.6 % (21.3-54.2); Mean Corpuscular HGB Conc 30.2 GM/DL (32-36); Mean Corpuscular Volume 94.2 FL (87-102); Monocytes % 10.1 % (1.7-12.7); NRBC # 0.02 10*3/uL; Neutrophils % 74.6 % (38.7-73.9); Platelet Count 271 T/CUMM (130-400); Red Blood Count 3.62 MC/CUMM (3.8-5.5); Red Cell Distribution Width 14.6 % (9.3-17.3); White Blood Count 7.9 T/CUMM (4-12)
[2019-05-17] MEDS: LEVOTHYROXINE 50 MCG TABLET PO SCH (10:17)
[2019-05-17] MEDS: PIMECROLIMUS 1% CREAM 30 GM TUBE TOP SCH ×3 (10:18→20:59)
[2019-05-17] MEDS: dilTIAZem Drip 125 MG/125 ML PREMIX IV SCH (10:18)
[2019-05-17 10:35] LABS: Calcium 6.5 MG/DL (8.5-10.1); Osmolality,Calculated 294.8 MOS/KG (273-304)
[2019-05-17] MEDS: DESITIN 4OZ/NYSTATIN 15 GRAM MIXTURE PASTE TOP SCH ×2 (11:30→20:58)
[2019-05-17] MEDS: LACTATED RINGERS 1,000 ML IV SCH (12:52)
[2019-05-17] MEDS ORDERED: NOREPINEPHRINE 4 MG/4 ML VIAL IV ONE (16:26)
[2019-05-17] MEDS: ROSUVASTATIN 20 MG TABLET PO SCH (20:45)
[2019-05-17] MEDS: VANCOMYCIN INJ 2,000 MG in SODIUM CHLORIDE 0.9% 500 ML IV SCH (20:46)
[2019-05-17] MEDS: CETIRIZINE 10 MG TABLET PO SCH (20:46)
[2019-05-18] MEDS: ACETAMINOPHEN 325 MG TABLET PO PRN (01:22)
[2019-05-18] MEDS: LACTATED RINGERS 1,000 ML IV SCH ×3 (01:55→23:56)
[2019-05-18] MEDS ORDERED: diphenhydrAMINE 50 MG/1 ML VIAL IV PRN (02:39)
[2019-05-18] MEDS ORDERED: ACETAMINOPHEN 325 MG TABLET PO PRN (02:42)
[2019-05-18 05:03] LABS: Basophils % 0.4 % (0.0-0.8); Eosinophils # 0.2 10*3/uL (0.0-0.87); Eosinophils % 3.9 % (0.00-10.9); Hematocrit 36.2 VOL% (35.7-47.0); Hemoglobin 10.9 GM/DL (12.0-16.0); Immature Granulocytes % 0.6 %; Immature Granulocytes Absolute 0.03 #; Lymphocytes # 0.9 10*3/uL (1.4-4.0); Lymphocytes % 15.8 % (21.3-54.2); Mean Corpuscular HGB Conc 30.1 GM/DL (32-36); Mean Platelet Volume 9.5 FL (9.6-12.0); Monocytes % 3.9 % (1.7-12.7); NRBC # 0.02 10*3/uL; Neutrophils % 75.4 % (38.7-73.9); Platelet Count 255 T/CUMM (130-400); Red Blood Count 3.85 MC/CUMM (3.8-5.5); Red Cell Distribution Width 14.6 % (9.3-17.3); White Blood Count 5.4 T/CUMM (4-12)
[2019-05-18 05:36] LABS: Band Neutrophils 8 % (0-10); Eosinophils 1 % (0-10); Lymphocytes 14 % (20-55); Segmented Neutrophils 72 % (50-85); Total Cells Counted 100
[2019-05-18 05:37] LABS: Anisocytosis 1+; Platelet Estimate Adequate
[2019-05-18] MEDS: AMIODARONE INJ 450 MG in DEXTROSE 5% 241 ML IV SCH ×3 (06:07→12:21)
[2019-05-18] MEDS: INSULIN REGULAR 100 UNIT/ML SUBCUT SCH ×4 (08:11→22:19)
[2019-05-18] MEDS: dilTIAZem Drip 125 MG/125 ML PREMIX IV SCH (08:21)
[2019-05-18] MEDS: NOREPINEPHRINE 8 MG in SODIUM CHLORIDE 0.9% 242 ML IV PRN ×2 (08:23→23:33)
[2019-05-18] MEDS: AMIODARONE 200 MG TABLET PO SCH ×3 (08:28→22:20)
[2019-05-18] MEDS: LEVOTHYROXINE 50 MCG TABLET PO SCH (08:43)
[2019-05-18] MEDS: PANTOPRAZOLE 40 MG TABLET PO SCH (08:43)
[2019-05-18] MEDS: LACTOBACILLUS ACIDOPHILUS/BULGARICUS CHEW TABLET PO SCH ×2 (08:43→22:18)
[2019-05-18] MEDS: FERROUS SULFATE 325 MG TABLET PO SCH (08:44)
[2019-05-18] MEDS: METOPROLOL TARTRATE 50 MG TABLET PO SCH ×2 (08:44→22:24)
[2019-05-18] MEDS: DESITIN 4OZ/NYSTATIN 15 GRAM MIXTURE PASTE TOP SCH ×2 (09:26→22:22)
[2019-05-18] MEDS: PIMECROLIMUS 1% CREAM 30 GM TUBE TOP SCH (09:26)
[2019-05-18] MEDS: CETIRIZINE 10 MG TABLET PO SCH (22:17)
[2019-05-18] MEDS: ROSUVASTATIN 20 MG TABLET PO SCH (22:17)
[2019-05-18] MEDS: TRIAMCINOLONE 0.1% OINT 15 GM TUBE TOP SCH (22:19)
[2019-05-18] MEDS: VANCOMYCIN INJ 2,000 MG in SODIUM CHLORIDE 0.9% 500 ML IV SCH (22:21)
[2019-05-18] MEDS: SKIN HEALING OINT (AQUAPHOR) 50 GM TUBE TOP SCH (22:24)
[2019-05-19] MEDS ORDERED: METOPROLOL TARTRATE 5 MG/5 ML VIAL IV ONE (00:02)
[2019-05-19] MEDS: MORPHINE 4 MG/1 ML VIAL IV PRN (03:30)
[2019-05-19] MEDS: DEXTROSE 10% 250 ML BAG IV PRN ×2 (07:15→08:30)
[2019-05-19] MEDS: INSULIN REGULAR 100 UNIT/ML SUBCUT SCH ×4 (07:29→20:48)
[2019-05-19] MEDS ORDERED: GENTAMICIN IV SCH (09:00)
[2019-05-19] MEDS ORDERED: SODIUM CHLORIDE 0.9% IV SCH (09:00)
[2019-05-19 09:01] LABS: ABG Base Excess -8.2 MMOL/L (-2.5-2.5); ABG HCO3 17.8 MMOL/L (20-26); ABG Oxygen Saturation 98.1 % (95-100); ABG PCO2 30.5 MM HG (35-48); ABG PH 7.342 (7.35-7.45)
[2019-05-19 09:05] LABS: Basophils # 0.1 10*3/uL (0.0-0.2); Basophils % 0.5 % (0.0-0.8); Eosinophils # 0.1 10*3/uL (0.0-0.87); Eosinophils % 0.9 % (0.00-10.9); Hematocrit 32.6 VOL% (35.7-47.0); Immature Granulocytes % 1.1 %; Immature Granulocytes Absolute 0.11 #; Lymphocytes # 0.4 10*3/uL (1.4-4.0); Lymphocytes % 4.2 % (21.3-54.2); Mean Corpuscular HGB Conc 30.7 GM/DL (32-36); Mean Corpuscular Volume 93.4 FL (87-102); Mean Platelet Volume 9.8 FL (9.6-12.0); Monocytes % 2.8 % (1.7-12.7); NRBC # 0.03 10*3/uL; Neutrophils % 90.5 % (38.7-73.9); Platelet Count 278 T/CUMM (130-400); Red Blood Count 3.49 MC/CUMM (3.8-5.5); Red Cell Distribution Width 15.2 % (9.3-17.3); White Blood Count 10.4 T/CUMM (4-12)
[2019-05-19] MEDS: LACTOBACILLUS ACIDOPHILUS/BULGARICUS CHEW TABLET PO SCH ×2 (09:05→22:29)
[2019-05-19] MEDS: FERROUS SULFATE 325 MG TABLET PO SCH (09:06)
[2019-05-19] MEDS: PANTOPRAZOLE 40 MG TABLET PO SCH (09:07)
[2019-05-19] MEDS: LEVOTHYROXINE 50 MCG TABLET PO SCH (09:07)
[2019-05-19] MEDS: DEXTROSE 5% LACTATED RINGERS 1,000 ML IV SCH ×2 (09:13→18:50)
[2019-05-19 09:32] LABS: Band Neutrophils 18 % (0-10); Burr Cells Slight; Eosinophils 1 % (0-10); Hypochromasia 1+; Lymphocytes 6 % (20-55); Nucleated Red Blood Cells 2 (0-5); Ovalocytes Slight; Platelet Estimate Adequate; Segmented Neutrophils 68 % (50-85); Total Cells Counted 100
[2019-05-19 09:58] LABS: Calcium 6.8 MG/DL (8.5-10.1); Osmolality,Calculated 289.3 MOS/KG (273-304)
[2019-05-19] MEDS: SKIN HEALING OINT (AQUAPHOR) 50 GM TUBE TOP SCH ×2 (16:00→22:28)
[2019-05-19] MEDS: TRIAMCINOLONE 0.1% OINT 15 GM TUBE TOP SCH ×2 (16:00→22:31)
[2019-05-19] MEDS: DESITIN 4OZ/NYSTATIN 15 GRAM MIXTURE PASTE TOP SCH ×2 (16:00→22:30)
[2019-05-19] MEDS: AMIODARONE 200 MG TABLET PO SCH ×2 (18:16→22:28)
[2019-05-19] MEDS: METOPROLOL TARTRATE 50 MG TABLET PO SCH ×2 (18:16→22:28)
[2019-05-19] MEDS: HYDROCORTISONE 100 MG VIAL IV SCH ×2 (18:49→22:29)
[2019-05-19] MEDS: NOREPINEPHRINE 8 MG in SODIUM CHLORIDE 0.9% 242 ML IV PRN (18:56)
[2019-05-19] MEDS: ROSUVASTATIN 20 MG TABLET PO SCH (22:28)
[2019-05-19] MEDS: CETIRIZINE 10 MG TABLET PO SCH (22:29)
[2019-05-19] MEDS: MINERAL OIL/PETROLATUM OPH OINT 3.5 GM TUBE BOTH EYES SCH (22:31)
[2019-05-20] MEDS: DEXTROSE 5% LACTATED RINGERS 1,000 ML IV SCH ×3 (03:01→18:05)
[2019-05-20] MEDS: HYDROCORTISONE 100 MG VIAL IV SCH ×4 (05:04→21:51)
[2019-05-20 05:19] LABS: Basophils # 0.1 10*3/uL (0.0-0.2); Basophils % 0.3 % (0.0-0.8); Eosinophils % 0.1 % (0.00-10.9); Hematocrit 35.4 VOL% (35.7-47.0); Immature Granulocytes % 1.9 %; Immature Granulocytes Absolute 0.31 #; Lymphocytes # 0.9 10*3/uL (1.4-4.0); Lymphocytes % 5.5 % (21.3-54.2); Mean Corpuscular HGB Conc 31.1 GM/DL (32-36); Mean Platelet Volume 9.9 FL (9.6-12.0); Monocytes % 4.3 % (1.7-12.7); NRBC # 0.04 10*3/uL; Neutrophils % 87.9 % (38.7-73.9); Platelet Count 330 T/CUMM (130-400); Red Blood Count 3.89 MC/CUMM (3.8-5.5); Red Cell Distribution Width 15.1 % (9.3-17.3); White Blood Count 16.4 T/CUMM (4-12)
[2019-05-20 05:40] LABS: Calcium 7.1 MG/DL (8.5-10.1); Osmolality,Calculated 291.4 MOS/KG (273-304)
[2019-05-20 05:49] LABS: Band Neutrophils 3 % (0-10); Lymphocytes 7 % (20-55); Platelet Estimate Adequate; Segmented Neutrophils 86 % (50-85); Total Cells Counted 100
[2019-05-20] MEDS: NOREPINEPHRINE 8 MG in SODIUM CHLORIDE 0.9% 242 ML IV PRN (05:59)
[2019-05-20] MEDS ORDERED: SODIUM CHLORIDE 0.9% IV PRN (10:00)
[2019-05-20] MEDS ORDERED: GENTAMICIN IV PRN (10:00)
[2019-05-20] MEDS: MORPHINE 4 MG/1 ML VIAL IV PRN ×2 (10:03→15:03)
[2019-05-20] MEDS: INSULIN REGULAR 100 UNIT/ML SUBCUT SCH ×4 (10:04→21:49)
[2019-05-20] MEDS: METOPROLOL TARTRATE 50 MG TABLET PO SCH ×2 (10:05→21:50)
[2019-05-20] MEDS: LEVOTHYROXINE 50 MCG TABLET PO SCH (10:06)
[2019-05-20] MEDS: AMIODARONE 200 MG TABLET PO SCH ×2 (10:06→21:51)
[2019-05-20] MEDS: FERROUS SULFATE 325 MG TABLET PO SCH (10:06)
[2019-05-20] MEDS: LANSOPRAZOLE ODT 30 MG TABLET PER TUBE SCH (10:06)
[2019-05-20] MEDS: SKIN HEALING OINT (AQUAPHOR) 50 GM TUBE TOP SCH (10:07)
[2019-05-20] MEDS: LACTOBACILLUS ACIDOPHILUS/BULGARICUS CHEW TABLET PO SCH ×2 (10:10→21:49)
[2019-05-20] MEDS: DESITIN 4OZ/NYSTATIN 15 GRAM MIXTURE PASTE TOP SCH ×2 (10:14→21:51)
[2019-05-20] MEDS: MINERAL OIL/PETROLATUM OPH OINT 3.5 GM TUBE BOTH EYES SCH ×2 (10:14→21:50)
[2019-05-20] MEDS ORDERED: DEXTROSE 50% 25 GM/50 ML VIAL IV PRN (10:45)
[2019-05-20] MEDS ORDERED: GLUCAGON 1 MG VIAL IM PRN (10:45)
[2019-05-20] MEDS ORDERED: SODIUM BICARBONATE 50 MEQ/50 ML VIAL IV ONE (12:11)
[2019-05-20] MEDS: TRIAMCINOLONE 0.1% OINT 80 GM TUBE TOP SCH ×2 (13:02→21:50)
[2019-05-20] MEDS: TRIAMCINOLONE 0.1% OINT 15 GM TUBE TOP SCH (14:05)
[2019-05-20] MEDS ORDERED: VANCOMYCIN INJ 2,000 MG in SODIUM CHLORIDE 0.9% 500 ML IV PRN (20:00)
[2019-05-20] MEDS: CETIRIZINE 10 MG TABLET PO SCH (21:49)
[2019-05-21] MEDS: SKIN HEALING OINT (AQUAPHOR) 50 GM TUBE TOP SCH ×2 (00:33→09:29)
[2019-05-21] MEDS: DEXTROSE 5% LACTATED RINGERS 1,000 ML IV SCH ×4 (00:33→21:17)
[2019-05-21] MEDS: MORPHINE 4 MG/1 ML VIAL IV PRN (01:30)
[2019-05-21 04:49] LABS: ABG Base Excess -8.9 MMOL/L (-2.5-2.5); ABG HCO3 17.3 MMOL/L (20-26); ABG Oxygen Saturation 98.8 % (95-100); ABG PCO2 35.4 MM HG (35-48); ABG PH 7.289 (7.35-7.45); ABG TCO2 15.3 MMOL/L (23-27)
[2019-05-21 04:55] LABS: Basophils # 0.1 10*3/uL (0.0-0.2); Basophils % 0.3 % (0.0-0.8); Eosinophils % 0.1 % (0.00-10.9); Hematocrit 36.4 VOL% (35.7-47.0); Hemoglobin 11.1 GM/DL (12.0-16.0); Immature Granulocytes % 1.5 %; Immature Granulocytes Absolute 0.25 #; Lymphocytes # 1.2 10*3/uL (1.4-4.0); Lymphocytes % 7.1 % (21.3-54.2); Mean Corpuscular HGB Conc 30.5 GM/DL (32-36); Mean Corpuscular Volume 93.1 FL (87-102); Mean Platelet Volume 9.7 FL (9.6-12.0); Monocytes % 4.8 % (1.7-12.7); NRBC # 0.11 10*3/uL; Neutrophils % 86.2 % (38.7-73.9); Platelet Count 288 T/CUMM (130-400); Red Blood Count 3.91 MC/CUMM (3.8-5.5); Red Cell Distribution Width 15.9 % (9.3-17.3); White Blood Count 16.4 T/CUMM (4-12)
[2019-05-21] MEDS: HYDROCORTISONE 100 MG VIAL IV SCH ×4 (04:57→21:20)
[2019-05-21 05:17] LABS: Albumin 1.5 G/DL (3.4-5.0); Bilirubin,Total 0.5 MG/DL (0.2-1.0); Calcium 7.1 MG/DL (8.5-10.1); Osmolality,Calculated 295.3 MOS/KG (273-304); Total Protein 5.6 G/DL (6.4-8.3)
[2019-05-21 05:52] LABS: Band Neutrophils 2 % (0-10); Lymphocytes 7 % (20-55); Metamyelocytes 1 %; Nucleated Red Blood Cells 1 (0-5); Segmented Neutrophils 87 % (50-85); Total Cells Counted 100
[2019-05-21 05:53] LABS: Anisocytosis Slight; Burr Cells 2+
[2019-05-21 05:54] LABS: Microcytosis Slight; Ovalocytes Slight; Platelet Estimate Normal
[2019-05-21] MEDS: INSULIN REGULAR 100 UNIT/ML SUBCUT SCH ×4 (09:20→21:20)
[2019-05-21] MEDS: LEVOTHYROXINE 50 MCG TABLET PO SCH (09:21)
[2019-05-21] MEDS: FERROUS SULFATE 325 MG TABLET PO SCH (09:21)
[2019-05-21] MEDS: AMIODARONE 200 MG TABLET PO SCH ×2 (09:21→21:19)
[2019-05-21] MEDS: LANSOPRAZOLE ODT 30 MG TABLET PER TUBE SCH (09:21)
[2019-05-21] MEDS: METOPROLOL TARTRATE 50 MG TABLET PO SCH ×2 (09:21→21:19)
[2019-05-21] MEDS: LACTOBACILLUS ACIDOPHILUS/BULGARICUS CHEW TABLET PO SCH ×2 (09:21→21:19)
[2019-05-21] MEDS: TRIAMCINOLONE 0.1% OINT 80 GM TUBE TOP SCH ×2 (09:29→21:50)
[2019-05-21] MEDS: MINERAL OIL/PETROLATUM OPH OINT 3.5 GM TUBE BOTH EYES SCH ×2 (09:29→21:51)
[2019-05-21] MEDS: DESITIN 4OZ/NYSTATIN 15 GRAM MIXTURE PASTE TOP SCH ×2 (09:29→21:50)
[2019-05-21] MEDS: metOLazone 5 MG TABLET PO SCH (14:15)
[2019-05-21] MEDS ORDERED: ALBUMIN 25% 25 GM in PREMIX 1 EACH IV ONE (14:30)
[2019-05-21] MEDS ORDERED: FUROSEMIDE INJ 240 MG in SODIUM CHLORIDE 0.9% 50 ML IV ONE (15:30)
[2019-05-21] MEDS ORDERED: TRIAMCINOLONE 0.1% OINT 80 GM TUBE TOP SCH (21:00)
[2019-05-21] MEDS ORDERED: SKIN HEALING OINT (AQUAPHOR) 50 GM TUBE TOP SCH (21:00)
[2019-05-21] MEDS: CETIRIZINE 10 MG TABLET PO SCH (21:19)
[2019-05-22] MEDS: SKIN HEALING OINT (AQUAPHOR) 50 GM TUBE TOP SCH ×2 (00:47→23:22)
[2019-05-22] MEDS: MORPHINE 4 MG/1 ML VIAL IV PRN ×2 (01:03→12:45)
[2019-05-22] MEDS: HYDROCORTISONE 100 MG VIAL IV SCH ×4 (04:10→21:39)
[2019-05-22 04:25] LABS: Basophils % 0.2 % (0.0-0.8); Eosinophils % 0.1 % (0.00-10.9); Hematocrit 35.4 VOL% (35.7-47.0); Hemoglobin 10.9 GM/DL (12.0-16.0); Immature Granulocytes % 1.9 %; Immature Granulocytes Absolute 0.34 #; Lymphocytes # 1.2 10*3/uL (1.4-4.0); Lymphocytes % 6.9 % (21.3-54.2); Mean Corpuscular HGB Conc 30.8 GM/DL (32-36); Mean Corpuscular Volume 92.7 FL (87-102); Monocytes % 5.1 % (1.7-12.7); NRBC # 0.21 10*3/uL; Neutrophils % 85.8 % (38.7-73.9); Platelet Count 239 T/CUMM (130-400); Red Blood Count 3.82 MC/CUMM (3.8-5.5); Red Cell Distribution Width 16.1 % (9.3-17.3); White Blood Count 17.7 T/CUMM (4-12)
[2019-05-22 04:44] LABS: Albumin 1.8 G/DL (3.4-5.0); Bilirubin,Total 0.6 MG/DL (0.2-1.0); Calcium 7.1 MG/DL (8.5-10.1); Osmolality,Calculated 293.4 MOS/KG (273-304); Total Protein 5.8 G/DL (6.4-8.3)
[2019-05-22] MEDS: LEVOTHYROXINE 50 MCG TABLET PO SCH (09:19)
[2019-05-22] MEDS: FERROUS SULFATE 325 MG TABLET PO SCH (09:19)
[2019-05-22] MEDS: AMIODARONE 200 MG TABLET PO SCH ×2 (09:20→21:40)
[2019-05-22] MEDS: metOLazone 5 MG TABLET PO SCH (09:21)
[2019-05-22] MEDS: LACTOBACILLUS ACIDOPHILUS/BULGARICUS CHEW TABLET PO SCH ×2 (09:21→21:41)
[2019-05-22] MEDS: LANSOPRAZOLE ODT 30 MG TABLET PER TUBE SCH (09:22)
[2019-05-22] MEDS: METOPROLOL TARTRATE 50 MG TABLET PO SCH ×2 (09:25→21:41)
[2019-05-22] MEDS: INSULIN REGULAR 100 UNIT/ML SUBCUT SCH ×4 (10:50→21:40)
[2019-05-22] MEDS: MINERAL OIL/PETROLATUM OPH OINT 3.5 GM TUBE BOTH EYES SCH ×2 (10:50→21:41)
[2019-05-22] MEDS: DESITIN 4OZ/NYSTATIN 15 GRAM MIXTURE PASTE TOP SCH ×2 (10:51→21:41)
[2019-05-22] MEDS: DEXTROSE 5% LACTATED RINGERS 1,000 ML IV SCH (15:08)
[2019-05-22] MEDS: HYDROmorphone 2 MG/1 ML VIAL IV PRN (19:41)
[2019-05-22] MEDS: TRIAMCINOLONE 0.1% OINT 80 GM TUBE TOP SCH (21:41)
[2019-05-22] MEDS: CETIRIZINE 10 MG TABLET PO SCH (21:41)
[2019-05-23] MEDS: HYDROmorphone 2 MG/1 ML VIAL IV PRN (00:08)
[2019-05-23 03:54] LABS: ABG Base Excess -13.2 MMOL/L (-2.5-2.5); ABG HCO3 14.2 MMOL/L (20-26); ABG Oxygen Saturation 93.3 % (95-100); ABG PCO2 44.8 MM HG (35-48); ABG PO2 85.4 MM HG (80-95); ABG TCO2 14.5 MMOL/L (23-27)
[2019-05-23] MEDS ORDERED: ATROPINE 1 % OPH SOLN 5 ML BOTTLE SL PRN (03:59)
[2019-05-23] MEDS ORDERED: SODIUM BICARBONATE 50 MEQ/50 ML VIAL IV ONE ×3 (04:14→11:15)
[2019-05-23] MEDS: HYDROCORTISONE 100 MG VIAL IV SCH ×2 (04:46→09:35)
[2019-05-23 04:55] LABS: Basophils # 0.1 10*3/uL (0.0-0.2); Basophils % 0.4 % (0.0-0.8); Hematocrit 35.8 VOL% (35.7-47.0); Hemoglobin 10.9 GM/DL (12.0-16.0); Immature Granulocytes % 5.4 %; Immature Granulocytes Absolute 0.89 #; Mean Corpuscular HGB Conc 30.4 GM/DL (32-36); Mean Corpuscular Volume 93.5 FL (87-102); Mean Platelet Volume 10.5 FL (9.6-12.0); Monocytes % 4.9 % (1.7-12.7); NRBC # 0.74 10*3/uL; Neutrophils % 83.3 % (38.7-73.9); Platelet Count 203 T/CUMM (130-400); Red Blood Count 3.83 MC/CUMM (3.8-5.5); Red Cell Distribution Width 16.5 % (9.3-17.3); White Blood Count 16.6 T/CUMM (4-12)
[2019-05-23 05:25] LABS: Albumin 1.7 G/DL (3.4-5.0); Bilirubin,Total 0.6 MG/DL (0.2-1.0); Calcium 7.2 MG/DL (8.5-10.1); Osmolality,Calculated 300.1 MOS/KG (273-304); Total Protein 5.7 G/DL (6.4-8.3)
[2019-05-23 06:19] LABS: ABG PH 7.151 (7.35-7.45)
[2019-05-23 06:49] LABS: Band Neutrophils 3 % (0-10); Lymphocytes 9 % (20-55); Metamyelocytes 2 %; Nucleated Red Blood Cells 9 (0-5); Platelet Estimate Normal; Segmented Neutrophils 82 % (50-85); Total Cells Counted 100
[2019-05-23 06:50] LABS: Giant Platelets Few
[2019-05-23] MEDS: INSULIN REGULAR 100 UNIT/ML SUBCUT SCH ×2 (07:30→12:28)
[2019-05-23] MEDS: LANSOPRAZOLE ODT 30 MG TABLET PER TUBE SCH (09:23)
[2019-05-23] MEDS: FERROUS SULFATE 325 MG TABLET PO SCH (09:23)
[2019-05-23] MEDS: AMIODARONE 200 MG TABLET PO SCH (09:23)
[2019-05-23] MEDS: LEVOTHYROXINE 50 MCG TABLET PO SCH (09:24)
[2019-05-23] MEDS: METOPROLOL TARTRATE 50 MG TABLET PO SCH (09:24)
[2019-05-23] MEDS: metOLazone 5 MG TABLET PO SCH (09:24)
[2019-05-23] MEDS: LACTOBACILLUS ACIDOPHILUS/BULGARICUS CHEW TABLET PO SCH (09:25)
[2019-05-23] MEDS: MINERAL OIL/PETROLATUM OPH OINT 3.5 GM TUBE BOTH EYES SCH (09:25)
[2019-05-23] MEDS: DESITIN 4OZ/NYSTATIN 15 GRAM MIXTURE PASTE TOP SCH (09:25)
[2019-05-23 10:01] VITALS: BP 93/75
[2019-05-23] MEDS ORDERED: VECURONIUM 10 MG VIAL IV ONE ×2 (10:35→10:39)
[2019-05-23] MEDS ORDERED: PROPOFOL 1,000 MG/100 ML BOTTLE IV ONE (10:35)
[2019-05-23] MEDS ORDERED: PROPOFOL 200 MG/20 ML VIAL IV ONE (10:38)
[2019-05-23] MEDS ORDERED: SODIUM CHLORIDE 0.9% 500 ML IV ONE (10:44)
[2019-05-23] MEDS ORDERED: PROPOFOL 1,000 MG/100 ML BOTTLE IV SCH ×2 (10:45→11:34)
[2019-05-23] MEDS ORDERED: PHENYLEPHRINE DRIP 40 MG/250 ML PREMIX IV ONE (11:11)
[2019-05-23] MEDS ORDERED: HEPARIN/NACL 0.9% 2 UNITS/ML 500 ML IV ONE (11:24)
[2019-05-23] MEDS ORDERED: PHENYLEPHRINE DRIP 40 MG/250 ML PREMIX IV SCH (11:34)
[2019-05-23] MEDS: DEXTROSE 5% LACTATED RINGERS 1,000 ML IV SCH (12:33)
[2019-05-23] MEDS ORDERED: HYDROCORTISONE 100 MG VIAL IV SCH (14:00)
== END 2019-05-23 14:14 | disposition expired | DRG 871 ==
LOC: EDUNIT# → EDBD → N.ED 08:20 → SUATTDRO 09:24 → N.EDINP 10:00 → N.ICU 10:31 → N.CC 05-15 16:01 → N.ICU 05-23 10:25
PROVIDERS: ADMIT Internal Medicine Geriatric Medicine; ATTEND Internal Medicine